=== PATIENT | female | born 1990 | race Caucasian/White ===

== ENCOUNTER 2018-02-23 12:50 | Emergency (ER) | payer BC ==
[~2018-02-23] VITALS: Ht 165.1 cm; Wt 81.6 kg
[2018-02-23 12:55] VITALS: Ht 165.1 cm; Wt 81.6 kg
[2018-02-23 13:52] VITALS: BP 134/84
== END 2018-02-23 13:52 | disposition home or self-care (01) ==
LOC: ED 12:50
DX: S00.03XA Contusion of scalp, initial encounter (principal); M54.5 Low back pain; F07.81 Postconcussional syndrome; W21.02XA Struck by soccer ball, initial encounter; Y93.66 Activity, soccer; Y92.89 Other specified places as the place of occurrence of the external cause; Y99.8 Other external cause status